=== PATIENT | male | born 1980 | race Native Hawaiian/Other Pacific Islander ===

== ENCOUNTER 2020-12-16 14:32 | Outpatient (CLI) | payer OTHER | END 2020-12-16 19:15 | disposition home or self-care (01) | LOC: RAD 14:32 | PROVIDERS: ATTEND Nurse Practitioner Family | DX: U07.1 COVID-19 (principal) ==

== ENCOUNTER 2020-12-18 13:55 | Outpatient (CLI) | payer OTHER ==
[~2020-12-18] VITALS: Ht 175.3 cm; Wt 104.3 kg
== END 2020-12-18 22:05 | disposition home or self-care (01) ==
LOC: INF 13:55
PROVIDERS: ATTEND Family Medicine
DX: Z23 Encounter for immunization (principal); U07.1 COVID-19
CPT/HCPCS: 96365; M0244